=== PATIENT | male | born 1965 | race Two or more races ===

== ENCOUNTER 2021-07-18 19:33 | Emergency (ER) | payer MEDICAID ==
[~2021-07-18] VITALS: Ht 170.2 cm; Wt 89.0 kg
[2021-07-18 19:40] VITALS: BP 149/103
== END 2021-07-18 21:30 | disposition home or self-care (01) ==
LOC: EMS 19:43
DX: Z71.1 Person with feared health complaint in whom no diagnosis is made (principal)
CPT/HCPCS: 36415; 99283; G0480

== ENCOUNTER 2022-01-10 20:08 | Emergency (ER) | payer MEDICAID | END 2022-01-10 22:30 | disposition left against medical advice (07) | LOC: EMS 22:19 | DX: Z53.21 Procedure and treatment not carried out due to patient leaving prior to being seen by health care provider (principal) ==